=== PATIENT | female | born 1995 | race Caucasian/White ===

== ENCOUNTER 2019-12-06 11:26 | Inpatient (IN) ==
[2019-12-06] MEDS ORDERED: MEPERIDINE 50 MG/1 ML VIAL IV PRN (12:28)
[2019-12-06] MEDS ORDERED: ONDANSETRON 4 MG/2 ML VIAL IV PRN ×2 (12:28→21:15)
[2019-12-06] MEDS ORDERED: BUTORPHANOL 1 MG/ML VIAL IV PRN (12:28)
[2019-12-06] MEDS ORDERED: BUTORPHANOL 2 MG/ML VIAL IV PRN (12:28)
[2019-12-06] MEDS ORDERED: OXYTOCIN/LR 20 UNIT/1,000 ML BAG IV SCH (12:30)
[2019-12-06] MEDS ORDERED: CITRIC ACID/SODIUM CITRATE 30 ML UDCUP PO ONE (12:54)
[2019-12-06] MEDS ORDERED: LACTATED RINGERS 1,000 ML IV ONE (12:54)
[2019-12-06] MEDS ORDERED: hydrOXYzine HCL 25 MG/1 ML VIAL IM PRN (12:54)
[2019-12-06] MEDS ORDERED: ONDANSETRON 4 MG/2 ML VIAL IV ONE (12:54)
[2019-12-06] MEDS ORDERED: FAMOTIDINE 20 MG/2 ML VIAL IV ONE (12:54)
[2019-12-06] MEDS ORDERED: NALOXONE 0.4 MG/ML VIAL IV PRN (12:54)
[2019-12-06] MEDS ORDERED: diphenhydrAMINE 50 MG/1 ML VIAL IV PRN ×2 (12:54)
[2019-12-06] MEDS ORDERED: PROMETHAZINE 25 MG/1 ML VIAL IM ONE (12:54)
[2019-12-06] MEDS ORDERED: ePHEDrine 50 MG/ML AMP IV PRN (12:54)
[2019-12-06 12:59] LABS: Basophils # 0.1 10*3/uL (0.0-0.2); Basophils % 0.4 % (0.0-0.8); Eosinophils # 0.1 10*3/uL (0.0-0.87); Eosinophils % 0.4 % (0.00-10.9); Hematocrit 36.9 VOL% (35.7-47.0); Hemoglobin 12.1 GM/DL (12.0-16.0); Immature Granulocytes % 0.7 %; Immature Granulocytes Absolute 0.09 #; Lymphocytes # 2.3 10*3/uL (1.4-4.0); Lymphocytes % 17.2 % (21.3-54.2); Mean Corpuscular HGB Conc 32.8 GM/DL (32-36); Mean Corpuscular Volume 85.8 FL (87-102); Neutrophils % 72.3 % (38.7-73.9); Platelet Count 299 T/CUMM (130-400); Red Cell Distribution Width 14.4 % (9.3-17.3); White Blood Count 13.3 T/CUMM (4-12)
[2019-12-06] MEDS ORDERED: fentaNYL 2 MCG/ROPIV 0.2% EPID 100 ML EPIDURAL SCH (13:00)
[2019-12-06 13:27] LABS: Alanine Aminotransferase 17 U/L (13-56); Albumin 2.5 G/DL (3.4-5.0); Alkaline Phosphatase 135 U/L (45-117); Aspartate Amino Transferase 14 U/L (0-37); Bilirubin,Total < 0.39 MG/DL (0.2-1.0); Blood Urea Nitrogen 9 MG/DL (7-18); Calcium 9.6 MG/DL (8.5-10.1); Estimated Glom Filtration Rate 94 ML/MIN; Glucose 97 MG/DL (74-106); Osmolality,Calculated 275.5 MOS/KG (273-304); Total Protein 7.1 G/DL (6.4-8.3)
[2019-12-06] MEDS: LACTATED RINGERS 1,000 ML IV SCH ×2 (13:37→17:24)
[2019-12-06 15:04] LABS: Apearance,Urine CLEAR (Clear); Bilirubin,Urine Negative (Negative); Blood, Urine Negative (Negative); Glucose,Urine (UA) Negative (Negative); Hyaline Casts,Urine 3 /LPF (0-3); Ketones,Urine Negative (Negative); Mucus,Urine Occasional /LPF (Occasional); Nitrite,Urine Negative (Negative); Protein,Urine Negative; RBC,Urine 3 /HPF (0-4); Urine Color Yellow (Yellow); Urine Specific Gravity 1.018 (1.001-1.035); Urine Urobilinogen < 2.0 EU/DL (0.2-1.0); WBC,Urine <1 /HPF (0-6)
[2019-12-06] MEDS ORDERED: miSOPROStoL 200 MCG TABLET ONE (19:18)
[2019-12-06] MEDS ORDERED: CARBOPROST TROMETHAMINE 250 MCG/ML AMP IM ONE (19:19)
[2019-12-06] MEDS ORDERED: METHYLERGONOVINE 0.2 MG/1 ML AMP ONE (19:19)
[2019-12-06] MEDS ORDERED: ceFAZolin 2,000 MG in PREMIX 1 EACH IV ONE (19:39)
[2019-12-06] MEDS ORDERED: LIDOCAINE MPF 2% /EPI 20 ML VIAL ONE (20:20)
[2019-12-06] MEDS ORDERED: LANOLIN 50% CREAM 0.3 OZ TUBE TOP PRN (21:15)
[2019-12-06] MEDS ORDERED: HYDROCORTISONE 2.5% RECTAL CREAM 30 GM TUBE TOP PRN (21:15)
[2019-12-06] MEDS ORDERED: BENZOCAINE 20%/MENTHOL 0.5% SPRAY 56 GM CAN TOP PRN (21:15)
[2019-12-06] MEDS ORDERED: RHO(D) IMMUNE GLOBULIN 300 MCG SYRINGE IM ONE (21:15)
[2019-12-06] MEDS ORDERED: DIPH/TET/ACEL PERT BOOSTER VACCINE 0.5 ML VIAL IM ONE (21:15)
[2019-12-06] MEDS ORDERED: oxyCODONE/ACETAMINOPHEN 5-325 MG TABLET PO PRN (21:15)
[2019-12-06] MEDS ORDERED: ACETAMINOPHEN 325 MG TABLET PO PRN (21:15)
[2019-12-06] MEDS ORDERED: OXYTOCIN/LR 20 UNIT/1,000 ML BAG IV ONE (21:15)
[2019-12-06] MEDS ORDERED: MEASLES/MUMPS/RUBELLA VACCINE 0.5 ML VIAL SUBCUT ONE (21:15)
[2019-12-06] MEDS ORDERED: WITCH HAZEL PADS 100/JAR TOP PRN (21:15)
[2019-12-06] MEDS ORDERED: BISACODYL 10 MG SUPP RECTAL PRN (21:15)
[2019-12-06] MEDS ORDERED: propofoL 200 MG/20 ML VIAL IV ONE (21:31)
[2019-12-06] MEDS ORDERED: LIDOCAINE 2% 5 ML VIAL ONE (21:31)
[2019-12-06] MEDS ORDERED: DEXAMETHASONE 4 MG/1 ML VIAL ONE (21:32)
[2019-12-06] MEDS ORDERED: PHENYLEPHRINE 1 MG/10 ML SYRINGE IV ONE (21:32)
[2019-12-06] MEDS ORDERED: ONDANSETRON 4 MG/2 ML VIAL ONE (21:32)
[2019-12-06] MEDS ORDERED: MORPHINE 10 MG/10 ML VIAL ONE (21:32)
[2019-12-07] MEDS: IBUPROFEN 800 MG TABLET PO PRN ×3 (00:47→21:57)
[2019-12-07] MEDS ORDERED: HydrOXYzine PAMOATE 25 MG CAPSULE PO PRN (03:01)
[2019-12-07] MEDS: ceFAZolin 1,000 MG in SYRINGE 1 EACH IV SCH ×2 (05:20→13:29)
[2019-12-07 06:02] LABS: Basophils % 0.2 % (0.0-0.8); Hematocrit 31.1 VOL% (35.7-47.0); Hemoglobin 10.2 GM/DL (12.0-16.0); Immature Granulocytes % 0.9 %; Immature Granulocytes Absolute 0.23 #; Lymphocytes # 1.9 10*3/uL (1.4-4.0); Lymphocytes % 7.6 % (21.3-54.2); Mean Corpuscular HGB Conc 32.8 GM/DL (32-36); Mean Corpuscular Volume 85.9 FL (87-102); Mean Platelet Volume 10.2 FL (9.6-12.0); Monocytes % 7.1 % (1.7-12.7); Neutrophils % 84.2 % (38.7-73.9); Platelet Count 253 T/CUMM (130-400); Red Blood Count 3.62 MC/CUMM (3.8-5.5); Red Cell Distribution Width 14.6 % (9.3-17.3); White Blood Count 24.3 T/CUMM (4-12)
[2019-12-07 06:27] LABS: Band Neutrophils 3 % (0-10); Hypochromasia 1+; Lymphocytes 8 % (20-55); Microcytosis 1+; Segmented Neutrophils 84 % (50-85); Total Cells Counted 100
[2019-12-07 06:28] LABS: Platelet Estimate Normal
[2019-12-07] MEDS: DOCUSATE SODIUM 100 MG CAPSULE PO SCH ×2 (08:39→21:44)
[2019-12-07] MEDS: oxyCODONE/ACETAMINOPHEN 5-325 MG TABLET PO PRN ×3 (08:39→21:57)
[2019-12-07] MEDS: diphenhydrAMINE CAP 25 MG CAPSULE PO PRN ×2 (08:54→15:51)
[2019-12-07] MEDS ORDERED: INFLUENZA VIRUS VACCINE 0.5 ML SYRINGE IM ONE (13:21)
[2019-12-07] MEDS: MAGNESIUM HYDROXIDE SUSP 30 ML UDCUP PO PRN (21:44)
[2019-12-08] MEDS: IBUPROFEN 800 MG TABLET PO PRN (07:12)
[2019-12-08] MEDS: oxyCODONE/ACETAMINOPHEN 5-325 MG TABLET PO PRN (07:12)
[2019-12-08 07:17] VITALS: BP 97/60
[2019-12-08] MEDS: MAGNESIUM HYDROXIDE SUSP 30 ML UDCUP PO PRN (08:48)
[2019-12-08] MEDS: DOCUSATE SODIUM 100 MG CAPSULE PO SCH (09:28)
== END 2019-12-08 12:10 | disposition home or self-care (01) | DRG 540 ==
LOC: N.LDOUT 11:26 → N.LD 11:29 → N.OB 12-07 00:06
PROVIDERS: ADMIT Specialist; ATTEND Specialist
PROC: LDCSECT (ICD-10-PCS; 2019-12-06 20:00)